=== PATIENT | female | born 1995 | race Hispanic/Latino ===

== ENCOUNTER 2018-11-05 10:10 | Outpatient (CLI) | payer OTHER ==
--- NOTE | 2018-11-05 13:27 | ULT ---
OBSTETRICAL SONOGRAM: HISTORY: Second trimester gestation. evaluation. FINDINGS: Multiple transabdominal sonographic views of the gravid uterus show a single intrauterine gestation i n cephalic presentation. The cervix is closed and 4.4 cm. Amniotic fluid is within normal limits. Grade 0 placenta is anterior. No gross intracranial abnormalities. A four-chamber heart shows motio n at 152 beats per minute. A three-vessel cord shows a normal insertion. spine and kidneys ar e intact as visualized. Measurements are as follows: Biparietal diameter: 22 weeks 6 days. Head circumference: 22 weeks 5 days. Abdominal circumference: 22 weeks 6 days. Femur length: 23 weeks 2 days. Estimated date of delivery based on today's sonogram is 03/06/2019. Hadlock is in the 79th percentile. IMPRESSION: Single viable intrauterine gestation with estimated gestational age based on today's sonogram 22 week s 5 days. POS: [facility]
== END 2018-11-05 10:11 | disposition home or self-care (01) ==
LOC: SCSULT 10:10
PROVIDERS: ATTEND Family Medicine
DX: O09.892 Supervision of other high risk pregnancies, second trimester (principal); Z3A.22 22 weeks gestation of pregnancy
CPT/HCPCS: 76805

== ENCOUNTER 2019-02-26 20:00 | Inpatient (IN) | payer OTHER, SELFPAY ==
[~2019-02-26 20:00] MED LIST: Bupivacaine 0.25% HCL 30 ML VIAL ONE
[2019-02-27] MEDS: Butorphanol Tartrate 1 MG/ML VIAL ONE ×2 (09:45→11:13)
[2019-02-27] MEDS ORDERED: NS w/ Oxytocin 10 units 500 ML IVPB SCH (10:30)
[2019-02-27] MEDS ORDERED: Misoprostol 100 MCG TAB VAG SCH ×2 (10:30→14:00)
[2019-02-27] MEDS ORDERED: Butorphanol Tartrate 1 MG/ML VIAL ONE (11:12)
[2019-02-27] MEDS ORDERED: Butorphanol Tartrate 1 MG/ML VIAL SLOW IVP PRN (11:26)
[2019-02-27] MEDS ORDERED: Lidocaine 1% (PF) 30 ML VIAL ONE (11:53)
[2019-02-27] MEDS ORDERED: NS / Oxytocin 40 units/1000ml 1,000 ML ONE ×2 (11:53→16:21)
[2019-02-27] MEDS ORDERED: Lidocaine 1% PF 5 ML VIAL ONE (11:53)
[2019-02-27] MEDS ORDERED: Fentanyl 4 mcg/Bup 0.1% Cadd 100 ML ONE (12:04)
[2019-02-27] MEDS ORDERED: Ondansetron PF 4 MG/2 ML Vial IVP PRN ×2 (12:44→17:41)
[2019-02-27] MEDS ORDERED: ePHEDrine/0.9% NaCl/PF SYRINGE 50 mg/10 ml SLOW IVP PRN (12:44)
[2019-02-27] MEDS ORDERED: diphenhydrAMINE 50 MG/ML VIAL IVP PRN (12:44)
[2019-02-27] MEDS ORDERED: Naloxone HCl 0.4 mg/ml Vial IVP PRN ×2 (12:44)
[2019-02-27] MEDS ORDERED: Acetaminophen 325 MG TAB PO PRN (12:44)
[2019-02-27] MEDS ORDERED: Lactated Ringer's 500 ML IV PRN (12:44)
[2019-02-27] MEDS ORDERED: Promethazine HCl 25 MG/ML VIAL IM PRN ×2 (12:44→17:41)
[2019-02-27] MEDS ORDERED: Fentanyl 4 mcg/Bupivacaine 0.1% Cassette 100 ML EPIDURAL SCH (12:45)
[2019-02-27] MEDS ORDERED: Communication Order-Pharmacy FS SCH (12:45)
[2019-02-27 14:24] LABS: Actual Bicarbonate (HCO3a) 29.9 mEq/L (22-28); Base Excess (BEa) 1.2 mEq/L (-2.0 to +3.0)
[2019-02-27 15:22] VITALS: BMI 31.6
[2019-02-27 15:35] LABS: HBSAg Index 0.24 S/CO (0-0.99); HIV (1/2) Antibody/Antigen NonReactive (NonReactive); HIV 1/2 INDEX 0.15 S/CO (<1.00); Hep B Surf Ag NonReactive S/CO (NonReactive); Syphilis Antibody Nonreactive (Nonreactive); Syphilis Antibody Index 0.05 S/CO (<1.00 Non-Reactive)
[2019-02-27 16:15] LABS: Hemoglobin 11.2 g/dL (12.0-16.0); Mean Corpuscular HGB CONC 33.5 g/dL (32.0-36.0); Mean Corpuscular Hemoglobin 30.3 pg (27.0-31.0); Mean Corpuscular Volume 90.6 fL (78.0-98.0); White Blood Cell (WBC) Count 12.1 thou/uL (4.8-10.8)
[2019-02-27 16:16] LABS: Band 7 % (5-11); Eosinophils 3 % (0-10); Lymphocytes 23 % (21-51); MDiff Complete? YES; Mean Platelet Volume 9.8 fL (7.4-10.4); Monocytes 6 % (0-10); Neutrophil 60 % (42-75); Platelet Count 228 thou/uL (130-400); Polychromasia SLIGHT = 2-3 cells (100X) (0-2/hpf); RBC Distribution Width 12.7 % (11.5-14.5); Reactive Lymphocytes 1 % (0-10)
[2019-02-27 16:17] LABS: Platelet Morphology Comment Appears Adequate
[2019-02-27] MEDS ORDERED: Ibuprofen 800 MG TAB ONE (17:39)
[2019-02-27] MEDS ORDERED: NS / Oxytocin 40 units/1000ml 1,000 ML IV SCH (17:41)
[2019-02-27] MEDS ORDERED: Bisacodyl 10 MG SUPP PR PRN (17:41)
[2019-02-27] MEDS ORDERED: hydrALAZINE 20 MG/ML VIAL SLOW IVP PRN (17:41)
[2019-02-27] MEDS ORDERED: diphenhydrAMINE 25 MG CAP PO PRN (17:41)
[2019-02-27] MEDS ORDERED: Milk Of Magnesia 30 ML UDCUP PO PRN (17:41)
[2019-02-27] MEDS ORDERED: Lanolin Ointment 7 GM TUBE TOP PRN (17:41)
[2019-02-27] MEDS ORDERED: Benzocaine-Menthol 82.5 ML CAN TOP PRN (17:41)
[2019-02-27] MEDS ORDERED: Preparation H Ointment 28 GM TUBE PR PRN (17:41)
[2019-02-27] MEDS ORDERED: HYDROcodone/Acetaminophen 5/325 mg Tablet PO PRN (17:41)
[2019-02-27] MEDS: Docusate Calcium (SURFAK) 240 MG CAP PO SCH (21:50)
[2019-02-27] MEDS: HYDROcodone/Acetaminophen 5/325 mg Tablet PO PRN (21:55)
[2019-02-28] MEDS: Ibuprofen 800 MG TAB PO SCH ×4 (02:00→21:58)
[2019-02-28] MEDS: HYDROcodone/Acetaminophen 5/325 mg Tablet PO PRN ×2 (02:03→21:57)
[2019-02-28 06:39] LABS: Hemoglobin 8.8 g/dL (12.0-16.0); Mean Corpuscular HGB CONC 33.5 g/dL (32.0-36.0); Mean Corpuscular Volume 92.6 fL (78.0-98.0); Mean Platelet Volume 9.4 fL (7.4-10.4); Platelet Count 183 thou/uL (130-400); RBC Distribution Width 12.6 % (11.5-14.5); Red Blood Cell (RBC) Count 2.84 mill/uL (4.20-5.40); White Blood Cell (WBC) Count 11.8 thou/uL (4.8-10.8)
[2019-02-28] MEDS: Ferrous Sulfate 325 MG TAB PO SCH ×2 (09:54→18:51)
[2019-02-28] MEDS: Docusate Calcium (SURFAK) 240 MG CAP PO SCH ×2 (09:54→21:58)
[2019-02-28] MEDS: Prenatal Vitamin 1 TAB PO SCH (09:54)
[2019-02-28] MEDS ORDERED: Sodium Chloride 0.9% 0 ML ONE (20:20)
[2019-03-01] MEDS: Ibuprofen 800 MG TAB PO SCH ×2 (06:17→14:22)
[2019-03-01 08:12] VITALS: BP 136/77; TEMP 98
[2019-03-01] MEDS: Docusate Calcium (SURFAK) 240 MG CAP PO SCH (09:21)
[2019-03-01] MEDS: Prenatal Vitamin 1 TAB PO SCH (09:21)
[2019-03-01] MEDS: Ferrous Sulfate 325 MG TAB PO SCH (09:21)
== END 2019-03-01 16:20 | disposition home or self-care (01) | DRG 807 ==
LOC: L&D 20:00 → 3SW 02-27 18:05
PROVIDERS: ADMIT Family Medicine; ATTEND Family Medicine
PROC: 10E0XZZ Delivery of Products of Conception, External Approach (ICD-10-PCS; principal; 2019-02-26)
PROC: 3E033VJ Introduction of Other Hormone into Peripheral Vein, Percutaneous Approach (ICD-10-PCS; 2019-02-26)
PROC: 10907ZC Drainage of Amniotic Fluid, Therapeutic from Products of Conception, Via Natural or Artificial Opening (ICD-10-PCS; 2019-02-26)
DX: O66.0 Obstructed labor due to shoulder dystocia (principal); Z37.0 Single live birth; Z3A.39 39 weeks gestation of pregnancy
CPT/HCPCS: 36415; 82805; 85025; 85027; 86780; 86850; 86900; 86901; 87340; 87389; J0595; J2001; J2590; S0020